=== PATIENT | female | born 1995 | race Caucasian/White ===

== ENCOUNTER 2017-06-23 05:25 | Emergency (ER) | payer OTHER, BC ==
[2017-06-23 05:54] VITALS: BMI 22.6
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
[2017-06-23] MEDS ORDERED: IBUPROFEN 600 MG TABLET (FP) PO ONE ×2 (07:48→07:50)
[2017-06-23 08:04] VITALS: BP 139/87; PULSE 77; TEMP 98
== END 2017-06-23 08:03 | disposition home or self-care (01) ==
LOC: JER 05:25
DX: S00.80XA Unspecified superficial injury of other part of head, initial encounter (principal); V49.49XA Driver injured in collision with other motor vehicles in traffic accident, initial encounter; W22.11XA Striking against or struck by driver side automobile airbag, initial encounter; Y92.488 Other paved roadways as the place of occurrence of the external cause; Y93.89 Activity, other specified; Y99.8 Other external cause status
CPT/HCPCS: 84703; 99283-25

== ENCOUNTER 2017-06-24 16:43 | Emergency (ER) | payer BC, OTHER ==
[2017-06-24 16:53] VITALS: BP 137/83; PULSE 69; TEMP 98.2; BMI 22.6
[2017-06-24] MEDS ORDERED: IBUPROFEN 400 MG TABLET (FP) PO ONE ×2 (17:36→17:50)
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
== END 2017-06-24 18:46 | disposition home or self-care (01) ==
LOC: JERFT 16:43
DX: S16.1XXD Strain of muscle, fascia and tendon at neck level, subsequent encounter (principal); V43.52XD Car driver injured in collision with other type car in traffic accident, subsequent encounter; W22.11XD Striking against or struck by driver side automobile airbag, subsequent encounter
CPT/HCPCS: 72050-TC; 84703; 99281-25